=== PATIENT | female | born 1945 | race Two or more races ===

== ENCOUNTER 2021-10-15 15:52 | Inpatient (IN) | payer MEDICARE, OTHER ==
[~2021-10-15] VITALS: Ht 165.1 cm; Wt 106.6 kg
[2021-10-15 17:22] LABS: Basophils # (auto) 0.1 10 ^3/uL (0-0.2); Basophils % (auto) 0.4 % (0.0-2.0); Eosinophils # (auto) 0 10 ^3/uL (0-0.8); Hematocrit 25.8 % (36.0-46.0); Hemoglobin 8.8 g/dL (12.2-16.2); Lymphocytes # (auto) 3.5 10 ^3/uL (0.4-5.4); Lymphocytes % (auto) 14.1 % (10.0-50.0); Mean Corpuscular Hemoglobin 29.5 pg (28.0-32.0); Mean Corpuscular Hgb Conc. 34.2 g/dL (32.0-36.0); Mean Corpuscular Volume 86.3 fL (80.0-100.0); Monocytes # (auto) 2.4 10 ^3/uL (0-1.3); Monocytes % (auto) 9.7 % (0.0-12.0); Neutrophils # (auto) 18.7 10 ^3/uL (1.6-8.6); Neutrophils % (auto) 75.8 % (37.0-80.0); Nucleated Red Blood Cells % 0.3 %; Red Blood Cells 2.99 10^6/uL (4.0-5.20); Red Cell Distribution Width 14.2 % (11.8-14.3); White Blood Cell 24.7 10^3/uL (4.4-10.8)
[2021-10-15] MEDS ORDERED: MORPHINE SULFATE 4 MG/ML SYR/VIAL IV ONE (17:30)
[2021-10-15] MEDS ORDERED: ONDANSETRON HCL 4 MG/2 ML VIAL IV ONE (17:30)
[2021-10-15 17:39] LABS: Albumin 3.2 g/dL (3.4-5.0); BUN/Creatinine Ratio 60.9; Magnesium 2.7 mg/dL (1.6-2.6); Potassium 3.8 mmol/L (3.5-5.1)
[2021-10-15 17:41] LABS: Bilirubin, Total 1.6 mg/dL (0.2-1.0); Total Protein 6.6 g/dL (6.4-8.2)
[2021-10-15] MEDS ORDERED: HYDROmorphone HCL 2 MG/ML VL/or syr IV ONE ×2 (17:45→22:15)
[2021-10-15 19:08] LABS: Urine Bacteria NONE SEEN /hpf (None Seen); Urine Blood Negative /uL (Negative); Urine Hyaline Cast FEW /lpf (0 - 2); Urine Mucus FEW (None Seen); Urine Specific Gravity 1.025 (1.001-1.035); Urine WBC 5 /hpf (0 - 5)
[2021-10-15 20:11] LABS: Partial Thromboplastin Time < 20.0 sec (23.6-33.0)
[2021-10-15] MEDS ORDERED: cefTRIAXone 1GM/50ML D5W 50 ML IV ONE (20:15)
[2021-10-15] MEDS ORDERED: SODIUM CHLORIDE 0.9% 1,000 ML IV ONE (21:30)
[2021-10-15] MEDS ORDERED: LACTATED RINGER'S 1,000 ML IV ONE (22:45)
[2021-10-15] MEDS ORDERED: MORPHINE SULFATE INJECTION 2 MG/ML SYRG IV PRN (22:45)
[2021-10-15] MEDS ORDERED: ONDANSETRON HCL 4 MG/2 ML VIAL IV PRN (22:45)
[2021-10-15] MEDS ORDERED: HYDROcodone-ACET 5/325MG TAB PO PRN (22:45)
[2021-10-16] VITALS (8 sets, daily range): BP systolic 96–116; BP diastolic 40–70
[2021-10-16] MEDS ORDERED: KETOROLAC TROMETH 30 MG/ML 1ML VIAL IV ONE (02:30)
[2021-10-16] MEDS ORDERED: CYCL0.05 BC (03:29)
[2021-10-16] MEDS ORDERED: VALS160T43 PO (03:29)
[2021-10-16] MEDS ORDERED: CELE100C82 PO (03:29)
[2021-10-16] MEDS ORDERED: LEVO175T2 PO (03:29)
[2021-10-16] MEDS ORDERED: ROSU1TAB12 PO (03:29)
[2021-10-16 08:27] LABS: Basophils % (auto) 0.2 % (0.0-2.0); Eosinophils % (auto) 0.2 % (0.0-7.0); Lymphocytes # (auto) 4.5 10 ^3/uL (0.4-5.4); Monocytes # (auto) 2.9 10 ^3/uL (0-1.3)
[2021-10-16 08:30] LABS: Basophils # (auto) 0 10 ^3/uL (0-0.2); Eosinophils # (auto) 0 10 ^3/uL (0-0.8); Hematocrit 18.7 % (36.0-46.0); Lymphocytes % (auto) 20.2 % (10.0-50.0); Mean Corpuscular Hemoglobin 29.9 pg (28.0-32.0); Mean Corpuscular Hgb Conc. 34.7 g/dL (32.0-36.0); Mean Corpuscular Volume 86.1 fL (80.0-100.0); Monocytes % (auto) 13.2 % (0.0-12.0); Neutrophils # (auto) 14.7 10 ^3/uL (1.6-8.6); Neutrophils % (auto) 66.2 % (37.0-80.0); Nucleated Red Blood Cells % 0.5 %; Red Blood Cells 2.17 10^6/uL (4.0-5.20); Red Cell Distribution Width 14.4 % (11.8-14.3); White Blood Cell 22.2 10^3/uL (4.4-10.8)
[2021-10-16] MEDS: cefTRIAXone 1GM/50ML D5W 50 ML IV SCH (08:31)
[2021-10-16 08:36] LABS: Hemoglobin 6.5 g/dL (12.2-16.2)
[2021-10-16] MEDS: PANTOPRAZOLE 40 MG TAB PO SCH (10:00)
[2021-10-16] MEDS: SODIUM CHLORIDE 0.9% 1,000 ML IV SCH (12:15)
[2021-10-16 14:06] LABS: Hemoglobin 6.7 g/dL (12.2-16.2)
[2021-10-16 14:19] LABS: Albumin 2.3 g/dL (3.4-5.0); Calcium 8.2 mg/dL (8.5-10.1); Potassium 3.5 mmol/L (3.5-5.1)
[2021-10-16 14:23] LABS: Total Protein 5.1 g/dL (6.4-8.2)
[2021-10-16] MEDS: HYDROcodone-ACET 7.5/325MG TAB PO PRN (17:50)
[2021-10-16] MEDS: ACETAMINOPHEN 325 MG TAB PO PRN (20:08)
[2021-10-17 00:10] VITALS: BP 112/61
[2021-10-17] MEDS: HYDROcodone-ACET 7.5/325MG TAB PO PRN ×4 (00:37→22:36)
[2021-10-17] MEDS: ACETAMINOPHEN 325 MG TAB PO PRN ×2 (04:11→17:54)
[2021-10-17 05:00] VITALS: BP 125/56
[2021-10-17] MEDS: SODIUM CHLORIDE 0.9% 1,000 ML IV SCH ×3 (05:35→17:54)
[2021-10-17 06:28] LABS: Mean Corpuscular Volume 84.3 fL (80.0-100.0); Red Cell Distribution Width 14.4 % (11.8-14.3)
[2021-10-17 06:29] LABS: Hematocrit 21.3 % (36.0-46.0); Hemoglobin 7.7 g/dL (12.2-16.2); Mean Corpuscular Hemoglobin 30.6 pg (28.0-32.0); Mean Corpuscular Hgb Conc. 36.3 g/dL (32.0-36.0); Red Blood Cells 2.53 10^6/uL (4.0-5.20); White Blood Cell 17.8 10^3/uL (4.4-10.8)
[2021-10-17 06:44] LABS: Albumin 2.2 g/dL (3.4-5.0); BUN/Creatinine Ratio 70.7; Calcium 8.3 mg/dL (8.5-10.1); Magnesium 2.2 mg/dL (1.6-2.6); Potassium 3.4 mmol/L (3.5-5.1)
[2021-10-17 06:56] LABS: Basophils % (manual) 0 (0.0-2.0); Blast Cells 0; Metamyelocytes % 0; Promyelocytes % 0; Reactive Lymphocytes 0
[2021-10-17 07:48] LABS: Band Neutrophils % (manual) 12; Lymphocytes % (manual) 9 (10.0-50.0)
[2021-10-17 07:49] LABS: Eosinophils % (manual) 1 (0-7); Monocytes % (manual) 13 (0-12); Myelocytes % 1
[2021-10-17] MEDS: cefTRIAXone 1GM/50ML D5W 50 ML IV SCH (08:32)
[2021-10-17] MEDS: PANTOPRAZOLE 40 MG TAB PO SCH (08:33)
[2021-10-17 09:00] VITALS: BP 102/57
[2021-10-17 13:00] VITALS: BP 108/59
[2021-10-17 17:00] VITALS: BP 98/58
[2021-10-17 22:08] VITALS: BP 95/41
[2021-10-18] MEDS: ACETAMINOPHEN 325 MG TAB PO PRN (00:49)
[2021-10-18 05:47] LABS: Albumin 2.1 g/dL (3.4-5.0); Calcium 8.5 mg/dL (8.5-10.1); Potassium 3.7 mmol/L (3.5-5.1)
[2021-10-18 05:50] LABS: BUN/Creatinine Ratio 58.8
[2021-10-18 05:52] LABS: Bilirubin, Total 0.8 mg/dL (0.2-1.0); Total Protein 4.7 g/dL (6.4-8.2)
[2021-10-18] MEDS: HYDROcodone-ACET 7.5/325MG TAB PO PRN ×3 (06:01→21:02)
[2021-10-18] MEDS: SODIUM CHLORIDE 0.9% 1,000 ML IV SCH ×2 (06:02→14:15)
[2021-10-18 06:03] VITALS: BP 113/55
[2021-10-18 07:02] LABS: Basophils # (auto) 0 10 ^3/uL (0-0.2); Basophils % (auto) 0.1 % (0.0-2.0); Eosinophils # (auto) 0.5 10 ^3/uL (0-0.8); Eosinophils % (auto) 3.4 % (0.0-7.0); Hematocrit 21.6 % (36.0-46.0); Hemoglobin 7.7 g/dL (12.2-16.2); Lymphocytes # (auto) 2.5 10 ^3/uL (0.4-5.4); Lymphocytes % (auto) 17.6 % (10.0-50.0); Mean Corpuscular Hemoglobin 30.7 pg (28.0-32.0); Mean Corpuscular Hgb Conc. 35.5 g/dL (32.0-36.0); Mean Corpuscular Volume 86.3 fL (80.0-100.0); Monocytes # (auto) 1.4 10 ^3/uL (0-1.3); Monocytes % (auto) 9.7 % (0.0-12.0); Neutrophils # (auto) 9.7 10 ^3/uL (1.6-8.6); Neutrophils % (auto) 69.2 % (37.0-80.0); Nucleated Red Blood Cells % 0.2 %; Red Cell Distribution Width 14.5 % (11.8-14.3); White Blood Cell 13.9 10^3/uL (4.4-10.8)
[2021-10-18 09:00] VITALS: BP 125/93
[2021-10-18] MEDS: cefTRIAXone 1GM/50ML D5W 50 ML IV SCH (10:27)
[2021-10-18] MEDS ORDERED: CHOLECALCIFEROL (VITD3) 2,000 UNIT CAP/TAB PO ONE (11:30)
[2021-10-18 13:00] VITALS: BP 142/57
[2021-10-18 17:00] VITALS: BP 128/58
[2021-10-18 21:57] VITALS: BP 121/64
[2021-10-19] MEDS: HYDROcodone-ACET 7.5/325MG TAB PO PRN ×4 (03:33→20:56)
[2021-10-19 04:51] VITALS: BP 120/58
[2021-10-19 06:18] LABS: Basophils # (auto) 0 10 ^3/uL (0-0.2); Basophils % (auto) 0.1 % (0.0-2.0); Eosinophils # (auto) 0.7 10 ^3/uL (0-0.8); Eosinophils % (auto) 6.1 % (0.0-7.0); Hematocrit 20.7 % (36.0-46.0); Hemoglobin 7.4 g/dL (12.2-16.2); Lymphocytes # (auto) 1.8 10 ^3/uL (0.4-5.4); Lymphocytes % (auto) 16.1 % (10.0-50.0); Mean Corpuscular Hemoglobin 30.6 pg (28.0-32.0); Mean Corpuscular Hgb Conc. 35.6 g/dL (32.0-36.0); Mean Corpuscular Volume 86.1 fL (80.0-100.0); Monocytes # (auto) 1.3 10 ^3/uL (0-1.3); Monocytes % (auto) 11.7 % (0.0-12.0); Neutrophils # (auto) 7.5 10 ^3/uL (1.6-8.6); Nucleated Red Blood Cells % 0.1 %; Red Blood Cells 2.41 10^6/uL (4.0-5.20); Red Cell Distribution Width 14.6 % (11.8-14.3); White Blood Cell 11.4 10^3/uL (4.4-10.8)
[2021-10-19] MEDS: SODIUM CHLORIDE 0.9% 1,000 ML IV SCH (06:27)
[2021-10-19] MEDS: LEVOTHYROXINE SODIUM 25 MCG TAB PO SCH (06:28)
[2021-10-19 06:33] LABS: BUN/Creatinine Ratio 43.5; Calcium 8.6 mg/dL (8.5-10.1); Potassium 3.8 mmol/L (3.5-5.1)
[2021-10-19] MEDS: cefTRIAXone 1GM/50ML D5W 50 ML IV SCH (08:57)
[2021-10-19] MEDS: CHOLECALCIFEROL (VITD3) 2,000 UNIT CAP/TAB PO SCH (08:57)
[2021-10-19 09:00] VITALS: BP 123/69
[2021-10-19] MEDS ORDERED: HYDROmorphone HCL 2 MG/ML VL/or syr IV PRN (09:45)
[2021-10-19 13:00] VITALS: BP 142/59
[2021-10-19 17:00] VITALS: BP 136/59
[2021-10-19 21:34] VITALS: BP 127/63
[2021-10-20] MEDS: HYDROcodone-ACET 7.5/325MG TAB PO PRN ×4 (03:39→23:53)
[2021-10-20 04:29] VITALS: BP_SYST 125; BP_SYST 129; BP_DIAS 59; BP_DIAS 87
[2021-10-20] MEDS: LEVOTHYROXINE SODIUM 25 MCG TAB PO SCH (06:52)
[2021-10-20 09:00] VITALS: BP 148/61
[2021-10-20] MEDS: cefTRIAXone 1GM/50ML D5W 50 ML IV SCH (09:15)
[2021-10-20] MEDS: CHOLECALCIFEROL (VITD3) 2,000 UNIT CAP/TAB PO SCH (09:29)
[2021-10-20 14:00] VITALS: BP 126/61
[2021-10-20 17:00] VITALS: BP 134/62
[2021-10-20 22:00] VITALS: BP 119/64
[2021-10-21 05:00] VITALS: BP 100/69
[2021-10-21 06:10] LABS: Basophils # (auto) 0 10 ^3/uL (0-0.2); Basophils % (auto) 0.2 % (0.0-2.0); Hemoglobin 8.2 g/dL (12.2-16.2); Nucleated Red Blood Cells % 0.1 %
[2021-10-21 06:11] LABS: Eosinophils % (auto) 5.5 % (0.0-7.0); Hematocrit 23.5 % (36.0-46.0); Lymphocytes # (auto) 1.8 10 ^3/uL (0.4-5.4); Mean Corpuscular Hemoglobin 30.3 pg (28.0-32.0); Mean Corpuscular Hgb Conc. 35.1 g/dL (32.0-36.0); Mean Corpuscular Volume 86.4 fL (80.0-100.0); Monocytes # (auto) 1.6 10 ^3/uL (0-1.3); Neutrophils # (auto) 13.3 10 ^3/uL (1.6-8.6); Neutrophils % (auto) 75.3 % (37.0-80.0); Red Blood Cells 2.72 10^6/uL (4.0-5.20); Red Cell Distribution Width 15.3 % (11.8-14.3); White Blood Cell 17.7 10^3/uL (4.4-10.8)
[2021-10-21] MEDS: HYDROcodone-ACET 7.5/325MG TAB PO PRN ×2 (07:24→15:55)
[2021-10-21] MEDS: LEVOTHYROXINE SODIUM 25 MCG TAB PO SCH (07:24)
[2021-10-21 09:22] VITALS: BP 121/63
[2021-10-21] MEDS: cefTRIAXone 1GM/50ML D5W 50 ML IV SCH (10:43)
[2021-10-21] MEDS: CHOLECALCIFEROL (VITD3) 2,000 UNIT CAP/TAB PO SCH (10:43)
[2021-10-21 13:07] VITALS: BP 150/64
[2021-10-21 16:55] VITALS: BP 140/57
== END 2021-10-21 19:40 | disposition short-term general hospital (02) | DRG 559 ==
LOC: ER 15:52 → EDBD 15:52 → OVERFLOW 22:34 → CENTRAL 23:42 → OVERFLOW 10-16 15:38 → CENTRAL 10-16 15:59
PROVIDERS: ADMIT Nurse Practitioner; ATTEND Internal Medicine
PROC: 30233N1 Transfusion of Nonautologous Red Blood Cells into Peripheral Vein, Percutaneous Approach (ICD-10-PCS; principal; 2021-10-16)
DX: M97.31XA Periprosthetic fracture around internal prosthetic right shoulder joint, initial encounter (principal); N17.0 Acute kidney failure with tubular necrosis; I48.92 Unspecified atrial flutter; R65.10 Systemic inflammatory response syndrome (SIRS) of non-infectious origin without acute organ dysfunction; D62 Acute posthemorrhagic anemia; N39.0 Urinary tract infection, site not specified; E03.9 Hypothyroidism, unspecified; E78.5 Hyperlipidemia, unspecified; E86.0 Dehydration; E87.6 Hypokalemia; I10 Essential (primary) hypertension; D72.829 Elevated white blood cell count, unspecified; M25.551 Pain in right hip; Z96.611 Presence of right artificial shoulder joint; E55.9 Vitamin D deficiency, unspecified; W01.0XXA Fall on same level from slipping, tripping and stumbling without subsequent striking against object, initial encounter; R74.01 Elevation of levels of liver transaminase levels; Z20.822 Contact with and (suspected) exposure to COVID-19; E66.01 Morbid (severe) obesity due to excess calories; I49.3 Ventricular premature depolarization; M19.90 Unspecified osteoarthritis, unspecified site; W51.XXXA Accidental striking against or bumped into by another person, initial encounter; Z60.2 Problems related to living alone; E88.09 Other disorders of plasma-protein metabolism, not elsewhere classified; Z88.5 Allergy status to narcotic agent; Y93.89 Activity, other specified; Y92.092 Bedroom in other non-institutional residence as the place of occurrence of the external cause; Y99.8 Other external cause status; Z91.040 Latex allergy status; Z83.3 Family history of diabetes mellitus; Z90.711 Acquired absence of uterus with remaining cervical stump; Z82.49 Family history of ischemic heart disease and other diseases of the circulatory system; Z68.38 Body mass index [BMI] 38.0-38.9, adult
CPT/HCPCS: 36415; 70450; 71045; 72125; 73030; 73060; 73110; 73200; 73502; 73562; 73610; 73700; 76775; 80048; 80053; 80061; 81001; 82306; 82550; 82553; 83605; 83735; 84443; 84484; 85007; 85014; 85018; 85025; 85027; 85610; 85730; 86850; 86900; 86901; 86920; 87040; 87086; 93005; 93306; 96361; 96365; 96375; 96376; 97110; 97163; 97530; 99291; G0378; J0696; J1885; J2405

== ENCOUNTER 2023-02-16 18:29 | Inpatient (IN) | payer MEDICARE, OTHER ==
[~2023-02-16] VITALS: Ht 165.1 cm; Wt 103.0 kg
[~2023-02-16 18:29] MED LIST: CELE100C82 PO; CYCL0.05 BC; LEVO175T2 PO; ROSU1TAB12 PO; VALS160T6 PO
[2023-02-16 20:23] LABS: Basophils # (auto) 0.1 10 ^3/uL (0-0.2); Basophils % (auto) 0.4 % (0.0-2.0); Eosinophils # (auto) 0 10 ^3/uL (0-0.8); Eosinophils % (auto) 0.1 % (0.0-7.0); Hematocrit 39.3 % (36.0-46.0); Hemoglobin 13.5 g/dL (12.2-16.2); Lymphocytes # (auto) 1.1 10 ^3/uL (0.4-5.4); Lymphocytes % (auto) 7.4 % (10.0-50.0); Mean Corpuscular Hemoglobin 29.8 pg (28.0-32.0); Mean Corpuscular Hgb Conc. 34.2 g/dL (32.0-36.0); Monocytes # (auto) 0.9 10 ^3/uL (0-1.3); Neutrophils # (auto) 13.4 10 ^3/uL (1.6-8.6); Neutrophils % (auto) 86.1 % (37.0-80.0); Red Blood Cells 4.52 10^6/uL (4.0-5.20); Red Cell Distribution Width 13.9 % (11.8-14.3); White Blood Cell 15.5 10^3/uL (4.4-10.8)
[2023-02-16] MEDS ORDERED: HYDROcodone-ACET 10/325MG TAB PO ONE (20:30)
[2023-02-16 20:34] LABS: Alanine Aminotransferase 40 U/L (7-40); Albumin 4.4 g/dL (3.2-4.8); Alkaline Phosphatase 119 U/L (46-116); Anion Gap 9.3 (5-15); Aspartate Aminotransferase 27 U/L (13-40); BUN/Creatinine Ratio 32.3 (10.0-20.0); Blood Alcohol < 3.0 mg/dL (<10); Blood Urea Nitrogen 21 mg/dL (9-23); Calcium 10.1 mg/dL (8.5-10.1); Carbon Dioxide 23.7 mmol/L (20-30); Chloride 107 mmol/L (98-107); Glucose 130 mg/dL (74-106); Magnesium 1.4 mg/dL (1.6-2.6); Potassium 3.7 mmol/L (3.5-5.1); Sodium 140 mmol/L (136-145)
[2023-02-16 20:35] LABS: Bilirubin, Total 0.7 mg/dL (0.2-1.0); Total Protein 6.7 g/dL (5.7-8.2)
[2023-02-16 20:44] LABS: INR 1.09 (0.9-1.15); Partial Thromboplastin Time 23.6 SEC (24.5-34.5); Prothrombin Time 11.4 sec (9.3-11.8)
[2023-02-16 21:17] LABS: Lipase 34 U/L (12-53)
[2023-02-16 21:53] LABS: COVID19 ANTIGEN SOFIA FIA NEGATIVE (NEGATIVE)
[2023-02-16] MEDS ORDERED: ACETAMINOPHEN 325 MG TAB PO PRN (23:45)
[2023-02-17] MEDS ORDERED: DEXTROSE (50%) 50ML SYRG IV PRN
[2023-02-17] MEDS ORDERED: HYDROcodone-ACET 10/325MG TAB PO ONE
[2023-02-17] MEDS ORDERED: cefTRIAXone 1GM/50ML D5W 50 ML IV ONE (00:15)
[2023-02-17] MEDS ORDERED: hydrALAZINE HCL 20 MG/ML VL IV PRN (00:15)
[2023-02-17] MEDS: ONDANSETRON HCL 4 MG/2 ML VIAL IV PRN ×4 (01:30→20:44)
[2023-02-17] MEDS: HYDROmorphone HCL 2 MG/ML VL/or syr IV PRN ×4 (01:31→20:39)
[2023-02-17] MEDS: ACCU-CHEK COMFORT CURVE STRIP VI SCH ×3 (02:23→12:00)
[2023-02-17] MEDS: InsuLIN REG 1unit/0.01ml Soln (100units/ml) SC SCH ×3 (02:29→12:00)
[2023-02-17] MEDS: SODIUM CHLORIDE 0.9% 1,000 ML IV SCH ×3 (02:33→16:00)
[2023-02-17 05:41] LABS: Urine Bacteria NONE SEEN /hpf (None Seen); Urine Blood Negative /uL (Negative); Urine Clarity Clear (Clear); Urine Color Yellow (Yellow); Urine Protein, UAD Negative (Negative); Urine Specific Gravity 1.031 (1.001-1.035); Urine Urobilinogen Normal (Negative); Urine WBC 1 /hpf (0 - 5)
[2023-02-17 05:46] LABS: Amphetamine Screen, Urine Neg (NEGATIVE); Barbiturate Scree,Urine Neg (NEGATIVE); Benzodiazephine Screen, Urine Neg (NEGATIVE); Cannabinoid Screen, Urine Neg (NEGATIVE); Cocaine Screen, Urine Neg (NEGATIVE); Opiate Scree,Urine Pos (NEGATIVE); Phencyclidine Screen, Urine Neg (NEGATIVE)
[2023-02-17 06:01] LABS: Basophils # (auto) 0 10 ^3/uL (0-0.2); Basophils % (auto) 0.2 % (0.0-2.0); Eosinophils # (auto) 0 10 ^3/uL (0-0.8); Hematocrit 35.3 % (36.0-46.0); Hemoglobin 12.7 g/dL (12.2-16.2); Lymphocytes # (auto) 1.2 10 ^3/uL (0.4-5.4); Lymphocytes % (auto) 10.3 % (10.0-50.0); Mean Corpuscular Hemoglobin 30.7 pg (28.0-32.0); Mean Corpuscular Hgb Conc. 36.1 g/dL (32.0-36.0); Mean Corpuscular Volume 85.2 fL (80.0-100.0); Monocytes % (auto) 8.4 % (0.0-12.0); Neutrophils # (auto) 9.4 10 ^3/uL (1.6-8.6); Neutrophils % (auto) 81.1 % (37.0-80.0); Red Blood Cells 4.14 10^6/uL (4.0-5.20); Red Cell Distribution Width 14.1 % (11.8-14.3); White Blood Cell 11.6 10^3/uL (4.4-10.8)
[2023-02-17 06:17] LABS: Alanine Aminotransferase 39 U/L (7-40); Albumin 4.2 g/dL (3.2-4.8); Alkaline Phosphatase 105 U/L (46-116); Aspartate Aminotransferase 31 U/L (13-40); BUN/Creatinine Ratio 24.2 (10.0-20.0); Bilirubin, Total 0.7 mg/dL (0.2-1.0); Blood Urea Nitrogen 16 mg/dL (9-23); Calcium 9.6 mg/dL (8.5-10.1); Chloride 105 mmol/L (98-107); Cholesterol 134 mg/dL (< 200); Glucose 127 mg/dL (74-106); HDL Cholesterol 64 mg/dL (40-59); LDL Cholesterol 56 mg/dL (< 100); Potassium 3.7 mmol/L (3.5-5.1); Sodium 139 mmol/L (136-145); Triglycerides 68 mg/dL (< 150)
[2023-02-17 06:18] LABS: Total Protein 6.6 g/dL (5.7-8.2)
[2023-02-17 07:01] LABS: Anion Gap 9.2 (5-15); Carbon Dioxide 24.8 mmol/L (20-30)
[2023-02-17 08:17] VITALS: PULSE 93; RESP 19; O2SAT 99
[2023-02-17] MEDS: PANTOPRAZOLE 40 MG/10 ML VIAL INJ IV SCH (10:10)
[2023-02-17 16:48] VITALS: BP 141/49; PULSE 89; RESP 19; TEMP 98.4; O2SAT 99
[2023-02-17 18:56] VITALS: PULSE 89; RESP 19; O2SAT 99
[2023-02-17 20:00] VITALS: PULSE 92; RESP 16; O2SAT 95
[2023-02-17] MEDS: cefTRIAXone 1GM/50ML D5W 50 ML IV SCH (20:42)
[2023-02-17 22:00] VITALS: BP 151/65; PULSE 92; RESP 16; TEMP 98.5; O2SAT 95
[2023-02-18] VITALS (24 sets, daily range): BP systolic 109–160; BP diastolic 48–86; PULSE 77–92; RESP 9–21; TEMP 97.9–98.4; O2SAT 93–100
[2023-02-18] MEDS: SODIUM CHLORIDE 0.9% 1,000 ML IV SCH ×4 (01:15→23:58)
[2023-02-18] MEDS: ONDANSETRON HCL 4 MG/2 ML VIAL IV PRN (02:48)
[2023-02-18] MEDS: HYDROmorphone HCL 2 MG/ML VL/or syr IV PRN ×3 (02:48→23:03)
[2023-02-18] MEDS ORDERED: ceFAZolin 1GM/50ML 100 ML IV ONE (07:08)
[2023-02-18] MEDS ORDERED: FAMOTIDINE (10MG/ML) 2ML VL IV ONE (07:21)
[2023-02-18] MEDS ORDERED: TETRACAINE 1% INJ 2 ML VIAL IJ ONE (07:22)
[2023-02-18] MEDS ORDERED: fentaNYL CITRATE 100 MCG/2 ML VL ONE (07:26)
[2023-02-18] MEDS ORDERED: HYDROmorphone HCL 2 MG/ML VL/or syr ONE (07:26)
[2023-02-18] MEDS ORDERED: ONDANSETRON HCL 4 MG/2 ML VIAL ONE (07:27)
[2023-02-18] MEDS ORDERED: PROPOFOL 10 MG/ML 20 ML IV ONE (07:27)
[2023-02-18] MEDS ORDERED: DexAMETHasone SOD PHOS 10MG/1ML VIAL INJ ONE (07:27)
[2023-02-18] MEDS ORDERED: MIDAZOLAM HCL 2MG/2ML 2ml VIAL (1mg/ml) ONE (07:27)
[2023-02-18] MEDS ORDERED: GLYCOPYRROLATE 0.2 MG/ML 1ML VIAL ONE (07:27)
[2023-02-18] MEDS ORDERED: ePHEDrine SULFATE 50 MG/ML AMP ONE (07:27)
[2023-02-18] MEDS ORDERED: DIGOXIN (250MCG/ML) 2 ML AMPULE IV ONE (08:15)
[2023-02-18] MEDS ORDERED: AMIODARONE BOLUS KIT 100 ML IV ONE (08:30)
[2023-02-18] MEDS ORDERED: NOREPINEPHRINE 8 MG/250ML KIT 250 ML IV ONE (08:32)
[2023-02-18] MEDS ORDERED: AMIODARONE 450mg/250ml AE 250 ML IV SCH (08:45)
[2023-02-18 08:46] LABS: Base Excess -2.8 mmol/L (-2.0-2.0)
[2023-02-18] MEDS: MAGNESIUM SULFATE 1GM/100ML 100 ML IV SCH ×2 (09:00→14:20)
[2023-02-18] MEDS: PANTOPRAZOLE 40 MG/10 ML VIAL INJ IV SCH (10:00)
[2023-02-18] MEDS ORDERED: ONDANSETRON HCL 4 MG/2 ML VIAL IV PRN (10:30)
[2023-02-18] MEDS ORDERED: HYDROmorphone HCL 2 MG/ML VL/or syr IV PRN (10:30)
[2023-02-18 13:31] LABS: Basophils # (auto) 0.1 10 ^3/uL (0-0.2); Basophils % (auto) 0.4 % (0.0-2.0); Eosinophils # (auto) 0 10 ^3/uL (0-0.8); Eosinophils % (auto) 0.1 % (0.0-7.0); Hematocrit 28.5 % (36.0-46.0); Hemoglobin 9.8 g/dL (12.2-16.2); Lymphocytes # (auto) 0.9 10 ^3/uL (0.4-5.4); Lymphocytes % (auto) 6.4 % (10.0-50.0); Mean Corpuscular Hgb Conc. 34.3 g/dL (32.0-36.0); Mean Corpuscular Volume 87.4 fL (80.0-100.0); Monocytes # (auto) 0.7 10 ^3/uL (0-1.3); Monocytes % (auto) 4.9 % (0.0-12.0); Neutrophils # (auto) 12.8 10 ^3/uL (1.6-8.6); Neutrophils % (auto) 88.2 % (37.0-80.0); Red Blood Cells 3.26 10^6/uL (4.0-5.20); Red Cell Distribution Width 14.1 % (11.8-14.3); White Blood Cell 14.5 10^3/uL (4.4-10.8)
[2023-02-18 13:45] LABS: Chloride 107 mmol/L (98-107); Potassium 3.9 mmol/L (3.5-5.1)
[2023-02-18 13:46] LABS: Anion Gap 3 (5-15); Carbon Dioxide 28 mmol/L (20-30); Sodium 138 mmol/L (136-145)
[2023-02-18 13:52] LABS: BUN/Creatinine Ratio 20.3 (10.0-20.0); Blood Urea Nitrogen 12 mg/dL (9-23); Glucose 132 mg/dL (74-106)
[2023-02-18] MEDS ORDERED: AMIODARONE HCL 200 MG TAB PO ONE (14:00)
[2023-02-18] MEDS: AMIODARONE HCL 200 MG TAB PO SCH (21:41)
[2023-02-18] MEDS: cefTRIAXone 1GM/50ML D5W 50 ML IV SCH (21:41)
[2023-02-19] VITALS (34 sets, daily range): BP systolic 105–155; BP diastolic 39–85; PULSE 72–97; RESP 9–20; TEMP 97.9–99; O2SAT 89–100
[2023-02-19] MEDS: HYDROcodone-ACET 5/325MG TAB PO PRN (01:45)
[2023-02-19] MEDS: SODIUM CHLORIDE 0.9% 1,000 ML IV SCH (07:47)
[2023-02-19] MEDS: HYDROmorphone HCL 2 MG/ML VL/or syr IV PRN ×4 (07:49→21:31)
[2023-02-19] MEDS ORDERED: D5W 5% 100 ML BAG IV ONE (07:50)
[2023-02-19] MEDS ORDERED: MAGNESIUM SULF 50% 40 MEQ/10 ML VL IV ONE (07:50)
[2023-02-19] MEDS: AMIODARONE HCL 200 MG TAB PO SCH ×2 (10:08→21:30)
[2023-02-19 14:39] LABS: Basophils # (auto) 0.1 10 ^3/uL (0-0.2); Eosinophils # (auto) 0 10 ^3/uL (0-0.8); Eosinophils % (auto) 0.4 % (0.0-7.0); Hematocrit 21.4 % (36.0-46.0); Lymphocytes # (auto) 1.5 10 ^3/uL (0.4-5.4); Lymphocytes % (auto) 17.7 % (10.0-50.0); White Blood Cell 8.6 10^3/uL (4.4-10.8)
[2023-02-19 14:41] LABS: Basophils % (auto) 0.8 % (0.0-2.0); Hemoglobin 7.5 g/dL (12.2-16.2); Mean Corpuscular Hemoglobin 31.1 pg (28.0-32.0); Mean Corpuscular Hgb Conc. 35.1 g/dL (32.0-36.0); Mean Corpuscular Volume 88.6 fL (80.0-100.0); Monocytes # (auto) 1.1 10 ^3/uL (0-1.3); Monocytes % (auto) 13.3 % (0.0-12.0); Neutrophils # (auto) 5.8 10 ^3/uL (1.6-8.6); Neutrophils % (auto) 67.8 % (37.0-80.0); Red Blood Cells 2.42 10^6/uL (4.0-5.20); Red Cell Distribution Width 14.2 % (11.8-14.3)
[2023-02-19 14:42] LABS: Chloride 109 mmol/L (98-107); Potassium 4.7 mmol/L (3.5-5.1); Sodium 139 mmol/L (136-145)
[2023-02-19 14:43] LABS: Anion Gap 4 (5-15); Calcium 9.1 mg/dL (8.7-10.4); Carbon Dioxide 26 mmol/L (20-30)
[2023-02-19 14:48] LABS: BUN/Creatinine Ratio 21.8 (10.0-20.0); Blood Urea Nitrogen 12 mg/dL (9-23); Glucose 126 mg/dL (74-106)
[2023-02-19] MEDS ORDERED: LEVOTHYROXINE SODIUM 100 MCG TAB PO ONE (15:45)
[2023-02-19] MEDS ORDERED: LACTULOSE 20Gm/30ML SOLN PO ONE (15:45)
[2023-02-19] MEDS ORDERED: LEVOTHYROXINE SODIUM 25 MCG TAB PO ONE (15:45)
[2023-02-19] MEDS ORDERED: FUROSEMIDE 20 MG/2 ML VIAL IV ONE (15:45)
[2023-02-19] MEDS ORDERED: POTASSIUM CHL 20 Meq TABLET PO ONE (15:45)
[2023-02-19] MEDS: DOCUSATE SOD 100 MG CAP PO PRN (16:30)
[2023-02-19] MEDS: cefTRIAXone 1GM/50ML D5W 50 ML IV SCH (21:30)
[2023-02-19] MEDS: LACTULOSE 20Gm/30ML SOLN PO SCH (21:31)
[2023-02-20] MEDS: HYDROmorphone HCL 2 MG/ML VL/or syr IV PRN ×4 (02:40→20:40)
[2023-02-20 05:00] VITALS: BP 116/65; PULSE 88; RESP 18; TEMP 97.9; O2SAT 100
[2023-02-20] MEDS: LEVOTHYROXINE SODIUM 25 MCG TAB PO SCH (06:36)
[2023-02-20] MEDS: LEVOTHYROXINE SODIUM 100 MCG TAB PO SCH (06:36)
[2023-02-20 06:54] LABS: Calcium 8.9 mg/dL (8.7-10.4); Chloride 107 mmol/L (98-107); Potassium 3.9 mmol/L (3.5-5.1); Sodium 140 mmol/L (136-145)
[2023-02-20 06:55] LABS: Anion Gap 3 (5-15); Carbon Dioxide 30 mmol/L (20-30)
[2023-02-20 07:00] LABS: Blood Urea Nitrogen 13 mg/dL (9-23); Glucose 103 mg/dL (74-106)
[2023-02-20 07:01] LABS: Magnesium 1.4 mg/dL (1.6-2.6)
[2023-02-20 08:00] VITALS: PULSE 86; PULSE 93; RESP 18; O2SAT 100
[2023-02-20 08:05] LABS: Basophils # (auto) 0.1 10 ^3/uL (0-0.2); Eosinophils # (auto) 0.6 10 ^3/uL (0-0.8); Hemoglobin 8.3 g/dL (12.2-16.2); Neutrophils # (auto) 4.6 10 ^3/uL (1.6-8.6); White Blood Cell 8.1 10^3/uL (4.4-10.8)
[2023-02-20 08:08] LABS: Basophils % (auto) 0.7 % (0.0-2.0); Eosinophils % (auto) 7.3 % (0.0-7.0); Hematocrit 23.7 % (36.0-46.0); Lymphocytes # (auto) 1.9 10 ^3/uL (0.4-5.4); Lymphocytes % (auto) 23.7 % (10.0-50.0); Mean Corpuscular Hgb Conc. 35.3 g/dL (32.0-36.0); Mean Corpuscular Volume 87.8 fL (80.0-100.0); Monocytes # (auto) 0.9 10 ^3/uL (0-1.3); Monocytes % (auto) 11.2 % (0.0-12.0); Neutrophils % (auto) 57.1 % (37.0-80.0); Red Cell Distribution Width 14.2 % (11.8-14.3)
[2023-02-20] MEDS ORDERED: FUROSEMIDE 20 MG/2 ML VIAL IV SCH (10:00)
[2023-02-20] MEDS ORDERED: HYDROmorphone HCL 2 MG/ML VL/or syr IV ONE (10:15)
[2023-02-20] MEDS: MAGNESIUM SULFATE 1GM/100ML 100 ML IV SCH ×2 (10:52→12:26)
[2023-02-20] MEDS: POTASSIUM CHL 20 Meq TABLET PO SCH (11:04)
[2023-02-20] MEDS: LACTULOSE 20Gm/30ML SOLN PO SCH ×2 (11:05→21:45)
[2023-02-20] MEDS: PANTOPRAZOLE 40 MG TAB PO SCH (11:05)
[2023-02-20] MEDS: AMIODARONE HCL 200 MG TAB PO SCH ×2 (11:05→21:45)
[2023-02-20 13:00] VITALS: BP 135/58; PULSE 86; TEMP 98.1
[2023-02-20] MEDS ORDERED: POLYETHYLENE GLYCOL 17 GM PWDR PO ONE (13:30)
[2023-02-20 17:00] VITALS: BP 131/69; PULSE 90; RESP 20; TEMP 98.3
[2023-02-20 20:00] VITALS: PULSE 89; PULSE 98; RESP 18; O2SAT 97
[2023-02-20] MEDS: cefTRIAXone 1GM/50ML D5W 50 ML IV SCH (21:44)
[2023-02-20] MEDS: DOCUSATE SOD 100 MG CAP PO PRN (21:45)
[2023-02-20 22:00] VITALS: BP 134/62; PULSE 89; RESP 18; TEMP 98.8; O2SAT 97
[2023-02-20] MEDS ORDERED: diphenhdrAMINE HCL 25 MG CAP PO ONE (23:45)
[2023-02-21] VITALS (7 sets, daily range): BP systolic 111–131; BP diastolic 50–101; PULSE 65–105; RESP 14–20; TEMP 97.8–98.3; O2SAT 94–100
[2023-02-21] MEDS: HYDROmorphone HCL 2 MG/ML VL/or syr IV PRN ×5 (00:48→20:49)
[2023-02-21] MEDS: LEVOTHYROXINE SODIUM 25 MCG TAB PO SCH (06:21)
[2023-02-21] MEDS: LEVOTHYROXINE SODIUM 100 MCG TAB PO SCH (06:21)
[2023-02-21] MEDS: FUROSEMIDE 20 MG TAB PO SCH (06:22)
[2023-02-21] MEDS: PANTOPRAZOLE 40 MG TAB PO SCH (09:20)
[2023-02-21] MEDS: POTASSIUM CHL 20 Meq TABLET PO SCH (09:20)
[2023-02-21] MEDS: LACTULOSE 20Gm/30ML SOLN PO SCH ×2 (09:21→22:08)
[2023-02-21] MEDS: HYDROcodone-ACET 5/325MG TAB PO PRN (09:21)
[2023-02-21] MEDS: AMIODARONE HCL 200 MG TAB PO SCH ×2 (09:21→22:08)
[2023-02-21] MEDS: cefTRIAXone 1GM/50ML D5W 50 ML IV SCH (22:08)
[2023-02-21] MEDS: diphenhdrAMINE HCL 25 MG CAP PO PRN (22:08)
[2023-02-22] VITALS (7 sets, daily range): BP systolic 107–138; BP diastolic 45–64; PULSE 62–93; RESP 14–20; TEMP 97.4–98.7; O2SAT 95–99
[2023-02-22] MEDS: HYDROmorphone HCL 2 MG/ML VL/or syr IV PRN ×3 (05:34→15:17)
[2023-02-22] MEDS: LEVOTHYROXINE SODIUM 25 MCG TAB PO SCH (06:06)
[2023-02-22] MEDS: LEVOTHYROXINE SODIUM 100 MCG TAB PO SCH (06:06)
[2023-02-22] MEDS: FUROSEMIDE 20 MG TAB PO SCH (06:10)
[2023-02-22] MEDS: AMIODARONE HCL 200 MG TAB PO SCH ×3 (09:05→22:00)
[2023-02-22] MEDS: LACTULOSE 20Gm/30ML SOLN PO SCH ×2 (09:05→21:56)
[2023-02-22] MEDS: POTASSIUM CHL 20 Meq TABLET PO SCH (09:05)
[2023-02-22] MEDS: DOCUSATE SOD 100 MG CAP PO PRN (09:05)
[2023-02-22] MEDS: PANTOPRAZOLE 40 MG TAB PO SCH (09:06)
[2023-02-22] MEDS ORDERED: POLYETHYLENE GLYCOL 17 GM PWDR PO PRN (17:30)
[2023-02-22] MEDS: diphenhdrAMINE HCL 25 MG CAP PO PRN (17:37)
[2023-02-22] MEDS: NYSTATIN (MOUTH-THROAT) 500,000 UNITS/5 ML SUSP MT SCH (21:56)
[2023-02-22] MEDS: NYSTATIN TOPICAL POWDER 15GM TOP SCH (22:00)
[2023-02-22] MEDS: cefTRIAXone 1GM/50ML D5W 50 ML IV SCH (22:00)
[2023-02-23] MEDS: HYDROmorphone HCL 2 MG/ML VL/or syr IV PRN ×7 (00:23→21:20)
[2023-02-23] MEDS: NYSTATIN (MOUTH-THROAT) 500,000 UNITS/5 ML SUSP MT SCH ×4 (05:49→22:30)
[2023-02-23] MEDS: FUROSEMIDE 20 MG TAB PO SCH (05:50)
[2023-02-23] MEDS: LEVOTHYROXINE SODIUM 100 MCG TAB PO SCH (05:50)
[2023-02-23] MEDS: LEVOTHYROXINE SODIUM 25 MCG TAB PO SCH (05:50)
[2023-02-23 08:00] VITALS: PULSE 80; RESP 20
[2023-02-23 09:00] VITALS: BP 126/40; PULSE 84; RESP 17; TEMP 98.6; O2SAT 100
[2023-02-23] MEDS: AMIODARONE HCL 200 MG TAB PO SCH ×2 (09:53→22:33)
[2023-02-23] MEDS: PANTOPRAZOLE 40 MG TAB PO SCH (09:53)
[2023-02-23] MEDS: POTASSIUM CHL 20 Meq TABLET PO SCH (09:53)
[2023-02-23] MEDS: LACTULOSE 20Gm/30ML SOLN PO SCH ×2 (09:53→22:33)
[2023-02-23] MEDS: NYSTATIN TOPICAL POWDER 15GM TOP SCH (10:00)
[2023-02-23] MEDS ORDERED: SENNA 8.6 MG TAB PO ONE (10:30)
[2023-02-23] MEDS ORDERED: DOCUSATE SOD 100 MG CAP PO ONE (10:30)
[2023-02-23 10:57] LABS: Basophils # (auto) 0 10 ^3/uL (0-0.2); Basophils % (auto) 0.3 % (0.0-2.0); Eosinophils % (auto) 7.9 % (0.0-7.0); Hematocrit 31.5 % (36.0-46.0); Hemoglobin 10.4 g/dL (12.2-16.2); Lymphocytes # (auto) 1.6 10 ^3/uL (0.4-5.4); Lymphocytes % (auto) 13.1 % (10.0-50.0); Mean Corpuscular Hemoglobin 29.6 pg (28.0-32.0); Mean Corpuscular Volume 89.5 fL (80.0-100.0); Monocytes % (auto) 8.5 % (0.0-12.0); Neutrophils # (auto) 8.5 10 ^3/uL (1.6-8.6); Neutrophils % (auto) 70.2 % (37.0-80.0); Nucleated Red Blood Cells % 0.8 %; Red Blood Cells 3.52 10^6/uL (4.0-5.20); Red Cell Distribution Width 14.5 % (11.8-14.3); White Blood Cell 12.2 10^3/uL (4.4-10.8)
[2023-02-23 12:19] LABS: Calcium 9.7 mg/dL (8.5-10.1); Carbon Dioxide 35 mmol/L (20-30)
[2023-02-23 12:24] LABS: BUN/Creatinine Ratio 23.4 (10.0-20.0); Blood Urea Nitrogen 15 mg/dL (9-23); Glucose 116 mg/dL (74-106)
[2023-02-23 12:47] LABS: Anion Gap 3 (5-15); Chloride 100 mmol/L (98-107); Potassium 3.6 mmol/L (3.5-5.1); Sodium 138 mmol/L (136-145)
[2023-02-23 20:00] VITALS: PULSE 89; PULSE 99; RESP 18
[2023-02-23] MEDS: ONDANSETRON HCL 4 MG/2 ML VIAL IV PRN (21:20)
[2023-02-23] MEDS: diphenhdrAMINE HCL 25 MG CAP PO PRN (23:29)
[2023-02-23 23:36] VITALS: BP 120/51; PULSE 89; RESP 18; TEMP 98.6; O2SAT 96
[2023-02-24] MEDS: HYDROmorphone HCL 2 MG/ML VL/or syr IV PRN ×2 (02:52→10:55)
[2023-02-24 05:26] VITALS: BP 134/6; PULSE 82; RESP 18; TEMP 98.6; O2SAT 98
[2023-02-24] MEDS: diphenhdrAMINE HCL 25 MG CAP PO PRN ×2 (05:29→20:12)
[2023-02-24] MEDS: NYSTATIN (MOUTH-THROAT) 500,000 UNITS/5 ML SUSP MT SCH ×3 (05:29→21:27)
[2023-02-24] MEDS: LEVOTHYROXINE SODIUM 100 MCG TAB PO SCH (06:59)
[2023-02-24] MEDS: LEVOTHYROXINE SODIUM 25 MCG TAB PO SCH (06:59)
[2023-02-24] MEDS: FUROSEMIDE 20 MG TAB PO SCH (07:00)
[2023-02-24 08:00] VITALS: PULSE 76; PULSE 89; RESP 18
[2023-02-24 09:00] VITALS: BP 123/56; PULSE 85; RESP 18; TEMP 98.7; O2SAT 95
[2023-02-24] MEDS: PANTOPRAZOLE 40 MG TAB PO SCH (09:08)
[2023-02-24] MEDS: POTASSIUM CHL 20 Meq TABLET PO SCH (09:08)
[2023-02-24] MEDS: LACTULOSE 20Gm/30ML SOLN PO SCH ×2 (09:09→21:28)
[2023-02-24] MEDS: AMIODARONE HCL 200 MG TAB PO SCH ×2 (09:09→21:28)
[2023-02-24] MEDS: NYSTATIN TOPICAL CREAM 15GM TOP SCH ×2 (10:00→22:21)
[2023-02-24] MEDS ORDERED: HYDROmorphone HCL 2 MG/ML VL/or syr IV PRN (12:00)
[2023-02-24 17:12] VITALS: BP 124/59; PULSE 87; RESP 18; TEMP 98.5; O2SAT 91
[2023-02-24] MEDS: HYDROcodone-ACET 10/325MG TAB PO PRN ×2 (18:17→22:21)
[2023-02-24 20:00] VITALS: PULSE 88; RESP 18
[2023-02-24 22:00] VITALS: BP 139/54; PULSE 84; RESP 18; TEMP 98.9; O2SAT 95
[2023-02-25] MEDS: HYDROcodone-ACET 10/325MG TAB PO PRN ×3 (04:45→13:06)
[2023-02-25 05:00] VITALS: BP 142/76; PULSE 79; RESP 18; TEMP 98.1; O2SAT 97
[2023-02-25] MEDS: NYSTATIN (MOUTH-THROAT) 500,000 UNITS/5 ML SUSP MT SCH ×2 (06:46→13:07)
[2023-02-25] MEDS: LEVOTHYROXINE SODIUM 25 MCG TAB PO SCH (06:46)
[2023-02-25] MEDS: LEVOTHYROXINE SODIUM 100 MCG TAB PO SCH (06:46)
[2023-02-25] MEDS: FUROSEMIDE 20 MG TAB PO SCH (06:48)
[2023-02-25 08:00] VITALS: PULSE 71
[2023-02-25 09:00] VITALS: BP 118/48; PULSE 72; RESP 18; TEMP 97.9; O2SAT 100
[2023-02-25] MEDS: LACTULOSE 20Gm/30ML SOLN PO SCH ×2 (09:03→10:06)
[2023-02-25] MEDS: NYSTATIN TOPICAL CREAM 15GM TOP SCH (09:08)
[2023-02-25] MEDS: AMIODARONE HCL 200 MG TAB PO SCH (09:08)
[2023-02-25] MEDS: PANTOPRAZOLE 40 MG TAB PO SCH (09:08)
[2023-02-25] MEDS: POTASSIUM CHL 20 Meq TABLET PO SCH (09:10)
[2023-02-25 13:00] VITALS: BP 128/40; PULSE 79; RESP 18; TEMP 97.9; O2SAT 100
[2023-02-25 17:00] VITALS: BP 132/43; PULSE 79; RESP 19; TEMP 98.3; O2SAT 98
== END 2023-02-25 18:57 | DRG 480 ==
LOC: ER 18:29 → EDBD 18:29 → OVERFLOW 23:45 → CENTRAL 02-17 15:57 → ICU WEST 02-18 13:09 → TELE-WESTW 02-19 22:40
PROVIDERS: ADMIT Nurse Practitioner Family; ATTEND Internal Medicine
PROC: BQ11ZZZ Fluoroscopy of Left Hip (ICD-10-PCS; 2023-02-18)
PROC: 5A2204Z Restoration of Cardiac Rhythm, Single (ICD-10-PCS; 2023-02-18)
PROC: 0QS734Z Reposition Left Upper Femur with Internal Fixation Device, Percutaneous Approach (ICD-10-PCS; principal; 2023-02-18 07:43)
PROC: 30233N1 Transfusion of Nonautologous Red Blood Cells into Peripheral Vein, Percutaneous Approach (ICD-10-PCS; 2023-02-19)
DX: S72.142A Displaced intertrochanteric fracture of left femur, initial encounter for closed fracture (principal); J96.00 Acute respiratory failure, unspecified whether with hypoxia or hypercapnia; R65.10 Systemic inflammatory response syndrome (SIRS) of non-infectious origin without acute organ dysfunction; I50.32 Chronic diastolic (congestive) heart failure; E03.9 Hypothyroidism, unspecified; E78.00 Pure hypercholesterolemia, unspecified; E66.9 Obesity, unspecified; I11.0 Hypertensive heart disease with heart failure; Z20.822 Contact with and (suspected) exposure to COVID-19; W06.XXXA Fall from bed, initial encounter; Z60.2 Problems related to living alone; D64.9 Anemia, unspecified; I48.0 Paroxysmal atrial fibrillation; Z82.49 Family history of ischemic heart disease and other diseases of the circulatory system; Z83.3 Family history of diabetes mellitus; Z86.718 Personal history of other venous thrombosis and embolism; Z90.710 Acquired absence of both cervix and uterus; Z91.199 Patient's noncompliance with other medical treatment and regimen due to unspecified reason; R29.6 Repeated falls; Z88.5 Allergy status to narcotic agent; Z91.81 History of falling; Z91.040 Latex allergy status; Z90.49 Acquired absence of other specified parts of digestive tract; Z68.36 Body mass index [BMI] 36.0-36.9, adult; Z91.041 Radiographic dye allergy status; Y93.89 Activity, other specified; Y92.092 Bedroom in other non-institutional residence as the place of occurrence of the external cause; Y99.8 Other external cause status; D72.829 Elevated white blood cell count, unspecified
CPT/HCPCS: 36415; 36600; 71045; 71250; 73502; 73560; 74176; 76000; 80048; 80053; 80061; 80307; 80320; 81001; 82010; 82805; 82962; 83036; 83690; 83735; 84443; 84484; 85025; 85610; 85730; 86850; 86900; 86901; 86920; 87040; 87081; 87426; 93005; 93306; 93971; 97110; 97116; 97163; 97530; C1713; C9113; G0378; J0690; J0696; J1100; J1815; J2250; J2405; J2704; J3490; J7060